=== PATIENT | female | born 1955 | race Hispanic/Latino ===

== ENCOUNTER 2020-12-29 12:55 | Day surgery (SDC) | payer OTHER ==
[2020-12-29] MEDS ORDERED: LIDOCAINE 1% MPF 5 ML VIAL ONE (13:34)
[2020-12-29 14:20] VITALS: BMI 37.5
[2020-12-29 14:28] VITALS: BP 106/57; TEMP 97.9; O2SAT 98
== END 2020-12-29 14:15 | disposition home health service (06) ==
LOC: DS 12:55
PROVIDERS: ATTEND Internal Medicine
DX: N10 Acute pyelonephritis (principal)
CPT/HCPCS: 96372

== ENCOUNTER 2021-09-22 18:04 | Emergency (ER) | payer OTHER ==
--- OUTSIDE RECORDS SUMMARY | 2021-09-22 18:07 | XMS REPORT | Continuity of Care Document ---
:1955 Author Organization [facility] t Address [address] [place] [address] Baljinder. [address] [place] [address] Care Team Providers Name Role Phone DR MAYI Attending Clinician Unavailable DR MAYI Admitting Clinician Unavailable Problems This patient has no known problems. Allergies, Adverse Reactions, Alerts This patient has no known allergies or adverse reactions. Medications This patient has no known medications. Procedures This patient has no known procedures. Encounters Start End Encounter Admission Attending Care Care Encounter Source Date/Time Date/Time Type Type Clinicians Facility Department ID 2017-10-24 2017-10-24 Outpatient ED [facility] [id number] 04:59:00 07:00:00 [facility] Results This patient has no known results.
--- NOTE | 2021-09-22 19:33 | ER ---
Nurse's Notes [facility] Name: Stacy Rivera Age: 65 yrs Sex: Female : 1955 Arrival Date: 09/22/2021 Time: 18:08 Bed 10 Private MD: Diagnosis: Rib Contusion right side Presentation: 09/22 18:12 Chief complaint: Patient states: "I fell down on and I must have hurt the ab2 right side ribs. It hurts to cough, take a deep breath and sneeze." Pt denies chest pain and SOB. Coronavirus screen: Vaccine status: Patient reports receiving the 2nd dose of the covid vaccine. Client denies travel out of the [place] in the last 14 days. At this time, the client does not indicate any symptoms associated with coronavirus-19. Ebola Screen: Patient negative for fever greater than or equal to 101.5 degrees Fahrenheit, and additional compatible Ebola Virus Disease symptoms Patient denies exposure to infectious person. Patient denies travel to an Ebola-affected area in the 21 days before illness onset. No symptoms or risks identified at this time. Initial Sepsis Screen: Does the patient meet any 2 criteria? No. Patient's initial sepsis screen is negative. Does the patient have a suspected source of infection? No. Patient's initial sepsis screen is negative. Risk Assessment: Do you want to hurt yourself or someone else? Patient reports no desire to harm self or others. Onset of symptoms is unknown. 18:12 Method Of Arrival: Ambulatory ab2 18:12 Acuity: SAMMI 4 ab2 Triage Assessment: 18:15 General: Appears in no apparent distress. comfortable, Behavior is calm, cooperative, ab2 appropriate for age. Pain: Complains of pain in right lateral posterior chest and right lateral anterior chest. Historical: - Allergies: 18:14 No Known Allergies; ab2 - PMHx: 18:14 None; ab2 - PSHx: 18:14 None; ab2 - Immunization history:: Adult Immunizations up to date. - Social history:: Smoking status: Patient denies any tobacco usage or history of. Screenin:15 Abuse screen: Denies threats or abuse. Denies injuries from another. Nutritional ab2 screening: No deficits noted. Tuberculosis screening: No symptoms or risk factors identified. Fall Risk None identified. Assessment: 18:15 General: Appears in no apparent distress. comfortable, Behavior is calm, cooperative, ab2 appropriate for age. Pain: Complains of pain in right lateral posterior chest and right lateral anterior chest. Neuro: Level of Consciousness is awake, alert, obeys commands, Oriented to person, place, time, situation, Appropriate for age. Cardiovascular: No deficits noted. Denies chest pain, shortness of breath, Heart tones S1 S2 present Patient's skin is warm and dry. Respiratory: Airway is patent is compromised Respiratory effort is even, unlabored, Respiratory pattern is regular, symmetrical. GI: No deficits noted. No signs and/or symptoms were reported involving the gastrointestinal system. : No deficits noted. No signs and/or symptoms were reported regarding the genitourinary system. EENT: No deficits noted. No signs and/or symptoms were reported regarding the EENT system. Derm: No deficits noted. No signs and/or symptoms reported regarding the dermatologic system. Skin is intact, is healthy with good turgor, Skin is pink, warm \\T\\ dry. Skin temperature is warm. Musculoskeletal: Reports pain in right lateral posterior chest and right lateral anterior chest. 19:48 Reassessment: Patient and/or family updated on plan of care and expected duration. Pain vc1 level reassessed. Patient is alert, oriented x 3, equal unlabored respirations, skin warm/dry/pink. Patient stated she will wait until she is home and take Ibuprofen Patient states symptoms have not improved. Vital Signs: 18:12 BP 163 / 79; Pulse 84; Resp 18; Temp 98.1(TE); Pulse Ox 100% on R/A; Weight 94.35 kg; ab2 Height 5 ft. 1 in. (154.94 cm); Pain 9/10; 18:12 Body Mass Index 39.30 (94.35 kg, 154.94 cm) ab2 ED Course: 18:08 Patient arrived in ED. as 18:14 Triage completed. ab2 18:15 Arm band placed on right wrist. ab2 18:15 Patient has correct armband on for positive identification. Bed in low position. Call ab2 light in reach. Side rails up X2. 18:15 No provider procedures requiring assistance completed. ab2 18:17 Airam Dena, CARO is Primary Nurse. ld1 18:37 Zan Stockton PA is PHCP. jr8 18:37 Parth Tran MD is Attending Physician. jr8 19:27 XRAY Chest (1 view) In Process Unspecified. EDMS 19:27 XRAY Ribs RIGHT In Process Unspecified. EDMS 19:50 Patient did not have IV access during this emergency room visit. vc1 Administered Medications: No medications were administered Outcome: 19:33 Discharge ordered by . jr8 19:49 Discharged to home ambulatory, with family. vc1 19:49 Condition: good 19:49 Discharge instructions given to patient, Instructed on discharge instructions, follow up and referral plans. Demonstrated understanding of instructions, follow-up care. 19:50 Patient left the ED. vc1 Signatures: Dispatcher [employer] EDKS Lupe Shepard as Zan Stockton PA PA jr8 Airam Dean, RN RN ld1 Timothy Hirsch Vanessa RN RN vc1
--- NOTE | 2021-09-22 19:33 | EDPHYS ---
Physician Documentation [facility] Name: Stacy Rivera Age: 65 yrs Sex: Female : 1955 Arrival Date: 09/22/2021 Time: 18:08 Bed 10 Private MD: ED Physician Parth Tran HPI: 09/22 19:30 This 65 yrs old Female presents to ER via Ambulatory with complaints of Rib jr8 Pain. 19:30 Associated signs and symptoms: The patient has no apparent associated signs or jr8 symptoms. Modifying factors: The patient symptoms are alleviated by nothing, the patient symptoms are aggravated by movement. The patient has not experienced similar symptoms in the past. The patient has not recently seen a physician. Patient stated that she tripped falling onto her knees and then hitting the right side of her ribs. Has had pain since then. Denies any other injury or loss consciousness at that time.. Historical: - Allergies: 18:14 No Known Allergies; ab2 - PMHx: 18:14 None; ab2 - PSHx: 18:14 None; ab2 - Immunization history:: Adult Immunizations up to date. - Social history:: Smoking status: Patient denies any tobacco usage or history of. ROS: 19:30 Eyes: Negative for injury, pain, redness, and discharge, ENT: Negative for injury, jr8 pain, and discharge, Neck: Negative for injury, pain, and swelling, Cardiovascular: Negative for chest pain, palpitations, and edema, Respiratory: Negative for shortness of breath, cough, wheezing, and pleuritic chest pain, Abdomen/GI: Negative for abdominal pain, nausea, vomiting, diarrhea, and constipation, Back: Negative for injury and pain, MS/Extremity: Negative for injury and deformity, Skin: Negative for injury, rash, and discoloration, Neuro: Negative for headache, weakness, numbness, tingling, and seizure. Exam: 19:30 Constitutional: This is a well developed, well nourished patient who is awake, alert, jr8 and in no acute distress. Head/Face: Normocephalic, atraumatic. Neck: Trachea midline, no thyromegaly or masses palpated, and no cervical lymphadenopathy. Supple, full range of motion without nuchal rigidity, or vertebral point tenderness. No Meningismus. Cardiovascular: Regular rate and rhythm with a normal S1 and S2. No gallops, murmurs, or rubs. Normal PMI, no JVD. No pulse deficits. Respiratory: Lungs have equal breath sounds bilaterally, clear to auscultation and percussion. No rales, rhonchi or wheezes noted. No increased work of breathing, no retractions or nasal flaring. Abdomen/GI: Soft, non-tender, with normal bowel sounds. No distension or tympany. No guarding or rebound. No evidence of tenderness throughout. Back: No spinal tenderness. No costovertebral tenderness. Full range of motion. Skin: Warm, dry with normal turgor. Normal color with no rashes, no lesions, and no evidence of cellulitis. MS/ Extremity: Pulses equal, no cyanosis. Neurovascular intact. Full, normal range of motion. Neuro: Awake and alert, GCS 15, oriented to person, place, time, and situation. Cranial nerves II-XII grossly intact. Motor strength 5/5 in all extremities. Sensory grossly intact. Cerebellar exam normal. Normal gait. 19:30 Chest/axilla: Inspection: normal, Palpation: tenderness, that is mild, of the right lateral anterior chest. Vital Signs: 18:12 BP 163 / 79; Pulse 84; Resp 18; Temp 98.1(TE); Pulse Ox 100% on R/A; Weight 94.35 kg; ab2 Height 5 ft. 1 in. (154.94 cm); Pain 9/10; 18:12 Body Mass Index 39.30 (94.35 kg, 154.94 cm) ab2 MDM: 18:37 Patient medically screened. 8 19:30 Data reviewed: vital signs, nurses notes, radiologic studies, plain films. Data jr8 interpreted: Pulse oximetry: on room air is 100 %. Interpretation: normal. Counseling: I had a detailed discussion with the patient and/or guardian regarding: the historical points, exam findings, and any diagnostic results supporting the discharge/admit diagnosis, radiology results, the need for outpatient follow up, a family practitioner, to return to the emergency department if symptoms worsen or persist or if there are any questions or concerns that arise at home. 09/22 18:24 Order name: XRAY Chest (1 view); Complete Time: 19:42 rn 09/22 18:24 Order name: XRAY Ribs RIGHT; Complete Time: 19:49 rn Administered Medications: No medications were administered Disposition: 09/23 07:16 Co-signature as Attending Physician, Parth Tran MD I agree with the assessment and rn plan of care. Attestation: The patient's history, exam findings, diagnostics, and a summary of any interventions or procedures was reviewed in detail with Zan MCCORMACK. Disposition Summary: 09/22/21 19:33 Discharge Ordered Location: Home [facility] Problem: new jr8 Symptoms: have improved jr8 Condition: Stable jr8 Diagnosis - Rib Contusion right side jr8 Followup: jr8 - With: Private Physician - When: As needed - Reason: Recheck today's complaints, Continuance of care, Re-evaluation by your physician Discharge Instructions: - Discharge Summary Sheet jr8 - Rib Contusion jr8 Forms: - Medication Reconciliation Form jr8 - Thank You Letter jr8 - Antibiotic Education jr8 - Prescription Opioid Use jr8 Signatures: Dispatcher [employer] EDParth Burks MD MD rn Roszak, Josh, PA PA jr8 Timothy Hirsch ab2
--- NOTE | 2021-09-22 19:40 | RAD REPORT ---
EXAM DESCRIPTION: RAD - Chest Single View - 09/22/2021 7:27 pm CLINICAL HISTORY: BLUNT CHEST TRAUMA, right-sided chest and rib pain COMPARISON: No remote imaging TECHNIQUE: AP portable chest image was obtained 09/22/2021 7:27 pm . FINDINGS: Lungs are clear. Heart and vasculature are normal. No measurable pleural effusion and no p neumothorax. No acute bone finding identified. Rib detail is provided in separate report. No acute ao rtic findings suspected. IMPRESSION: No acute cardiopulmonary process.
--- NOTE | 2021-09-22 19:41 | RAD REPORT ---
EXAM DESCRIPTION: Ribs Right - 09/22/2021 7:27 pm CLINICAL HISTORY: PAIN COMPARISON: Chest Single View dated 09/22/2021None. FINDINGS: No displaced rib fracture is evident. No non-displaced rib fracture suspected. No aggressive rib lesion. No underlying pneumothorax, effusion, infiltrate or pulmonary contusion. IMPRESSION: Negative right rib series.
[2021-09-22 20:14] VITALS: BP 163/79; TEMP 98.1; O2SAT 100
== END 2021-09-22 19:50 | disposition home or self-care (01) ==
LOC: ER 18:04
DX: S20.211D Contusion of right front wall of thorax, subsequent encounter (principal); W01.0XXD Fall on same level from slipping, tripping and stumbling without subsequent striking against object, subsequent encounter
CPT/HCPCS: 71045; 99283

== ENCOUNTER → 2023-07-29 | Emergency (ER) | payer OTHER ==
--- OUTSIDE RECORDS SUMMARY | 2023-07-29 14:27 | XMS REPORT | Continuity of Care Document ---
Author Name Unknown Address [address] [place] [address] thconnect Address [address] [place] [address] Care Team Providers Care Precision Instrument Maker Name Role Phone DR CANDIDA SEE Attending Clinician Unavailable DR CANDIDA SEE Admitting Clinician Unavailable Encounters Start Date/Time End Date/Time Encounter Type Admission Type Attending Clinicians Care Facility Care Department Encounter ID Source 2017-10-24 04:59:00 2017-10-24 07:00:00 Outpatient C CANDIDA SEE [facility] [id number] [facility]
--- NOTE | 2023-07-29 15:08 | RAD REPORT ---
EXAM DESCRIPTION: RAD - Shoulder Left 2 View - 07/29/2023 2:56 pm CLINICAL HISTORY: PAIN COMPARISON: No comparisons FINDINGS/IMPRESSION: Suspected nondisplaced fracture at the greater tuberosity. Moderate left AC deepa nt degenerative changes. No other fractures appreciated. No shoulder dislocation.
--- NOTE | 2023-07-29 15:08 | RAD REPORT ---
EXAM DESCRIPTION: RAD - Humerus Left - 07/29/2023 2:57 pm CLINICAL HISTORY: PAIN COMPARISON: Shoulder Left 2 View dated 07/29/2023 FINDINGS/IMPRESSION: Nondisplaced fracture at the greater tuberosity is suspected. No other fracture s of the left humerus identified .
--- NOTE | 2023-07-29 16:39 | EDPHYS ---
Physician Documentation [facility] Name: Stacy Rivera Age: 67 yrs Sex: Female : 1955 Arrival Date: 07/29/2023 Time: 14:24 Bed 9 Private MD: ED Physician Clark Engle HPI: 07/29 14:39 This 67 yrs old Female presents to ER via Ambulatory with complaints of Fall ec2 Injury, Shoulder Pain. 14:39 Patient arrives today for evaluation of left shoulder pain. States that she was ec2 walking, subsequently tripped and fell, states that she landed on her left shoulder. Patient reports no LOC, no head or neck pain, no blood thinner use. Patient reports no prodromal symptoms, states that she had a recent right lower extremity surgery which is what caused her instability.. Historical: - Allergies: 14:35 No Known Allergies; ll1 - PMHx: 14:37 Hypertensive disorder; GERD; 1 kidney; Kidney stone; ll1 - Immunization history:: Adult Immunizations up to date. - Social history:: Smoking status: Patient denies any tobacco usage or history of. ROS: 14:39 Constitutional: as per hpi ec2 Exam: 14:39 Constitutional: GEN: No acute distress HEENT: -Head: atraumatic -Eyes: EOMI CV: ec2 regular rate LUNGS: no respiratory distress ABD: non-tender SKIN: no wounds appreciated MSK: No C/T/L spine deformities RUE w/o bony deformity LUE with TTP to the proximal humerus/shoulder, range of motion with abduction to approximately 110 degrees, intact distal neurovascular status RLE w/o bony deformity LLE w/o bony deformity NEURO: moves all extremities equally, GCS 15 (E4, V5, M6) Vital Signs: 14:36 BP 145 / 71; Pulse 71; Resp 18; Temp 98.2; Pulse Ox 98% ; Weight 83.91 kg; Height 5 ft. ll1 1 in. ; Pain 8/10; 14:36 Body Mass Index 34.96 (83.91 kg, 154.94 cm) ll1 14:36 Pain Scale: Adult ll1 [place]nci Coma Score: 17:06 Eye Response: spontaneous(4). Motor Response: obeys commands(6). Verbal Response: ph oriented(5). Total: 15. Trauma Score (Adult): 17:06 Eye Response: spontaneous(1); Verbal Response: oriented(1); Motor Response: obeys ph commands(2); Systolic BP: > 89 mm Hg(4); Respiratory Rate: 10 to 29 per min(4); Cedrick Score: 15; Trauma Score: 12 MDM: 14:33 Patient medically screened. ec2 14:39 Data reviewed: vital signs, nurses notes. ED course: Patient arrives today for ec2 evaluation of left shoulder pain after a ground-level fall. Examination remarkable for well-appearing nontoxic dividual is otherwise in no acute distress with reassuring MSK examination aside from the left proximal humerus TTP. Will obtain radiographs of the shoulder and humerus. Currently considering shoulder sprain, dislocation, fracture. 15:29 ED course: Shoulder and humerus x-rays show nondisplaced fracture of the greater ec2 tuberosity. This to be consistent with the patient's pain. Will place patient in sling and have her follow-up with the orthopedic surgeon. Will prescribe her medication for pain as well.. 07/29 14:39 Order name: Shoulder Left (2 View) XRAY; Complete Time: 15:29 ec2 07/29 14:39 Order name: Humerus Left XRAY; Complete Time: 15:29 ec2 07/29 16:28 Order name: Sling; Complete Time: 17:08 ec2 Administered Medications: No medications were administered Disposition Summary: 07/29/23 16:39 Discharge Ordered Notes: Location: Home ec2 Condition: Stable ec2 Diagnosis - Fracture of greater tuberosity of humerus ec2 Followup: ec2 - With: Dean Cantu MD - When: - Reason: Recheck today's complaints Discharge Instructions: - Discharge Summary Sheet ec2 - Humerus Fracture Treated With Immobilization, [id number] ec2 Forms: - Medication Reconciliation Form ec2 - Thank You Letter ec2 - Antibiotic Education ec2 - Prescription Opioid Use ec2 - Patient Portal Instructions ec2 - Leadership Thank You Letter ec2 Prescriptions: - acetaminophen-codeine 300-15 mg Oral tablet - take 1 tablet ORAL route 4 times per day as needed for pain; 12 tablet; ec2 Refills: 0, Product Selection Permitted Signatures: Dispatcher [employer] Nel Brooks RN RN ll1 Engle, Clark, MD MD ec2
--- NOTE | 2023-07-29 16:39 | ER ---
Nurse's Notes [facility] Name: Stacy Rivera Age: 67 yrs Sex: Female : 1955 Arrival Date: 07/29/2023 Time: 14:24 Bed 9 Private MD: Diagnosis: Fracture of greater tuberosity of humerus Presentation: 07/29 14:35 Chief complaint: Patient states: Trip at 1230 today. L shoulder pain since. Coronavirus ll1 screen: Client denies travel out of the [place] in the last 14 days. At this time, the client does not indicate any symptoms associated with coronavirus-19. Ebola Screen: Patient denies travel to an Ebola-affected area in the 21 days before illness onset. Initial Sepsis Screen: Does the patient meet any 2 criteria? No. Patient's initial sepsis screen is negative. Does the patient have a suspected source of infection? Yes: Bone or joint infection. Risk Assessment: Do you want to hurt yourself or someone else? Patient reports no desire to harm self or others. Onset of symptoms was July 29, 2023. 14:35 Method Of Arrival: Ambulatory ll1 14:35 Acuity: SAMMI 3 ll1 17:07 Care prior to arrival: None. Mechanism of Injury: Fall from standing position. Trauma ph event details: Injury occurred in the [facility], Injury occurred: at home. Injury occurred: July 29, 2023. Triage Assessment: 14:36 General: Appears uncomfortable, Behavior is calm, cooperative, appropriate for age. ll1 Pain: Complains of pain in L shoulder Pain Quality of pain is described as aching. Neuro: No deficits noted. Cardiovascular: No deficits noted. Musculoskeletal: Circulation, motion, and sensation intact. Capillary refill < 3 seconds, Reports pain in L shoulder. Trauma Activation: Not Applicable Physician: ED Physician; Name: ; Notified At: ; Arrived At: Physician: General Surgeon; Name: ; Notified At: ; Arrived At: Physician: Radiology; Name: ; Notified At: ; Arrived At: Physician: Respiratory; Name: ; Notified At: ; Arrived At: Physician: Lab; Name: ; Notified At: ; Arrived At: Historical: - Allergies: 14:35 No Known Allergies; ll1 - PMHx: 14:37 Hypertensive disorder; GERD; 1 kidney; Kidney stone; ll1 - Immunization history:: Adult Immunizations up to date. - Social history:: Smoking status: Patient denies any tobacco usage or history of. Screenin:03 [facility] ED Fall Risk Assessment (Adult) History of falling in the last 3 months, ph including since admission Yes- single mechanical fall (1 pt) Confusion or Disorientation No (0 pts) Intoxicated or Sedated No (0 pts) Impaired Gait No (0 pts) Mobility Assist Device Used No (0 pt) Altered Elimination No (0 pt) Score/Fall Risk Level 0 - 2 = Low Risk Oriented to surroundings, Maintained a safe environment, Provided non-skid footwear, Hourly rounding (assess needs \T\ fall precautionary measures) done. Abuse screen: Denies threats or abuse. Denies injuries from another. Nutritional screening: No deficits noted. Tuberculosis screening: No symptoms or risk factors identified. Primary Survey: 17:05 NO uncontrolled hemorrhage observed. A: The client is awake and alert. The airway is ph patent. Breathing/Chest: Spontaneous respiratory effort, equal unlabored respirations, breath sounds clear bilaterally, regular pattern, symmetrical chest rise and fall. Circulation: No external hemorrhage present. Regular and strong central pulse, skin warm/dry/normal color. Disability Pupils are equal, round, reactive to light and accommodation. Exposure/Environment: All clothing and personal items were removed. Forensic evidence collection is not deemed to be indicated at this time. Items placed in patient belonging bag. There is no evidence of uncontrolled external bleeding. No obvious injuries are noted at this time. Reassessment Alertness and Airway: Awake and alert. The airway is patent. Breathing: Respiratory effort Circulation: No external hemorrhage noted. Regular and strong central pulse, skin warm/dry/normal color. Disability: Pupils Pupils are equal, round, reactive to light and accomodation. Assessment: 17:06 Pain: Complains of pain in anterior aspect of left shoulder and left bicep. Neuro: ph Level of Consciousness is awake, alert, obeys commands, Oriented to person, place, time, situation. Respiratory: Airway is patent Respiratory effort is even, unlabored. Musculoskeletal: Circulation, motion, and sensation intact. Range of motion: limited in left shoulder. Vital Signs: 14:36 BP 145 / 71; Pulse 71; Resp 18; Temp 98.2; Pulse Ox 98% ; Weight 83.91 kg; Height 5 ft. ll1 1 in. ; Pain 8/10; 14:36 Body Mass Index 34.96 (83.91 kg, 154.94 cm) ll1 14:36 Pain Scale: Adult ll1 Putney Coma Score: 17:06 Eye Response: spontaneous(4). Motor Response: obeys commands(6). Verbal Response: ph oriented(5). Total: 15. Trauma Score (Adult): 17:06 Eye Response: spontaneous(1); Verbal Response: oriented(1); Motor Response: obeys ph commands(2); Systolic BP: > 89 mm Hg(4); Respiratory Rate: 10 to 29 per min(4); Putney Score: 15; Trauma Score: 12 ED Course: 14:26 Patient arrived in ED. mg5 14:28 Clark Engle MD is Attending Physician. ec2 14:35 Triage completed. ll1 14:36 Arm band placed on. ll1 14:58 Shoulder Left (2 View) XRAY In Process Unspecified. EDMS 14:58 Humerus Left XRAY In Process Unspecified. EDMS 16:35 Yenifer Nelson, RN is Primary Nurse. ph 16:38 Dean Cantu MD is Referral Physician. ec2 17:06 Patient has correct armband on for positive identification. Bed in low position. Call ph light in reach. 17:06 No provider procedures requiring assistance completed. Patient did not have IV access ph during this emergency room visit. Sling applied to left arm. 17:07 Patient maintains SpO2 saturation greater than 95% on room air. Thermoregulation: warm ph blanket given to patient. Administered Medications: No medications were administered Medication: 17:07 VIS not applicable for this client. ph Intake: 17:07 PO: 0ml; Total: 0ml. ph Output: 17:07 Urine: 0ml; Total: 0ml. ph Outcome: 16:39 Discharge ordered by . ec2 17:07 Discharged to home ambulatory, with significant other, ph 17:07 Condition: good 17:07 Discharge instructions given to patient, Instructed on discharge instructions, follow up and referral plans. medication usage, Demonstrated understanding of instructions, follow-up care, medications, Prescriptions given X 1, 17:08 Patient's length of stay was not longer than 2 hours. ph 17:08 Patient left the ED. ph Signatures: Dispatcher [employer] EDMS Nelson, Yenifer, RN RN Nel Luis RN RN ll1 Marisel Velazquez mg5 Clark Engle MD MD ec2 Corrections: (The following items were deleted from the chart) 14:40 14:36 Resp 18bpm; ll1 ll1
[2023-07-29 20:10] VITALS: BP 145/71; TEMP 98.2; O2SAT 98
== END ==
LOC: ER 14:24
DX: S42.252A Displaced fracture of greater tuberosity of left humerus, initial encounter for closed fracture (principal); W01.0XXA Fall on same level from slipping, tripping and stumbling without subsequent striking against object, initial encounter
CPT/HCPCS: 99285